=== PATIENT | male | born 1960 | race Asian ===

== ENCOUNTER 2017-05-25 18:08 | Emergency (ER) | payer OTHER ==
[~2017-05-25] VITALS: Ht 170.2 cm; Wt 86.2 kg
[2017-05-25 18:15] VITALS: BP_SYST 161
--- NOTE | 2017-05-25 18:19 | NUR ---
Patient to ER bed 01 to gown for evaluation. Side rails up.
--- NOTE | 2017-05-25 18:26 | NUR ---
Dr Lainez at bedside examining patient
--- NOTE | 2017-05-25 18:30 | NUR ---
Pt c/o possible retinal detachment. Pt being advised to follow up w/ opthamology in AM. Pt verbalized understanding.
[2017-05-25 18:33] VITALS: BP_SYST 161
--- NOTE | 2017-05-25 18:33 | NUR ---
Patient given written and verbal discharge instructions and verbalizes understanding. ER MD discussed with patient the results and treatment provided. Patient in stable condition. ID arm band removed. no Rx given. Patient educated on pain management and to follow up with PMD. Pain Scale 0. Opportunity for questions provided and answered.
== END 2017-05-25 18:33 | disposition home or self-care (01) ==
LOC: SED 18:08
DX: H53.2 Diplopia (principal)
CPT/HCPCS: 99281